=== PATIENT | male | born 2000 | race Two or more races ===

== ENCOUNTER 2024-04-26 23:41 | Emergency (ER) | payer OTHER ==
[~2024-04-26] VITALS: Ht 175.3 cm; Wt 128.3 kg
[2024-04-27 00:21] VITALS: BP 178/108; PULSE 85; RESP 16; TEMP 99; O2SAT 98
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
== END 2024-04-27 03:40 | disposition home or self-care (01) ==
LOC: ER 23:41
DX: S13.4XXA Sprain of ligaments of cervical spine, initial encounter (principal); S29.012A Strain of muscle and tendon of back wall of thorax, initial encounter; S39.012A Strain of muscle, fascia and tendon of lower back, initial encounter; S40.021A Contusion of right upper arm, initial encounter; M43.17 Spondylolisthesis, lumbosacral region; V89.2XXA Person injured in unspecified motor-vehicle accident, traffic, initial encounter; Y93.89 Activity, other specified; Y92.89 Other specified places as the place of occurrence of the external cause; Y99.8 Other external cause status
CPT/HCPCS: 71111; 72040; 72070; 72100